=== PATIENT | male | born 1955 | race African-American/Black ===

== ENCOUNTER 2017-06-02 16:51 | Emergency (ER) | payer OTHER ==
[~2017-06-02] VITALS: Ht 193 cm; Wt 99.8 kg
[2017-06-02] MEDS: MORPHINE SULFATE 5 MG/ML SYRINGE. IV ONE (17:21)
[2017-06-02 17:23] LABS: BASO % 0 % (0-3); EOS % 0 % (0-3); HEMOGLOBIN 15.4 g/dL (13.0-17.5); LYMPH # 3.3 x10^3/uL (1.0-4.8); LYMPH % 35 % (24-48); MEAN CORPUSCULAR HEMOGLOBIN 31 pg (25-35); MEAN CORPUSCULAR HGB CONC 34 g/dL (31-37); MEAN CORPUSCULAR VOLUME 92 fL (79-100); MONO # 0.7 x10^3/uL (0.0-1.1); MONO % 7 % (0-9); NEUT # 5.5 x10^3uL (1.8-7.7); NEUT % 57 % (31-73); PLATELET COUNT 207 x10^3/uL (140-400); RED BLOOD COUNT 4.99 x10^6/uL (4.30-5.70); RED CELL DISTRIBUTION WIDTH 13.9 % (11.5-14.5); WHITE BLOOD COUNT 9.5 x10^3/uL (4.0-11.0)
[2017-06-02 17:24] LABS: POTASSIUM ISTAT 3.6 mmol/L (3.5-5.0)
[2017-06-02] MEDS ORDERED: IV NORMAL SALINE 1,000ML 1,000 ML ONE (17:38)
[2017-06-02] MEDS: IOHEXOL 300 MG/ML 75 ML VIAL. IV ONE (17:42)
--- NOTE | 2017-06-02 17:52 | ED.ADGEN ---
Past History Past Medical History: No Pertinent History Past Surgical History: No Surgical History Alcohol Use: Occasionally Drug Use: None Adult General Chief Complaint Chief Complaint Fall, back pain, sob HPI HPI Patient is a 62 year old male who presents with pain after mechanical fall from tree just prior to arrival. Fall approximately 10-12 feet onto his back. Pt with SOB and back pain, denies LOC, unsure if hit head. Denies blood thinners. Pt was cutting branches with chain saw when he fell. Pt denies extremity pain , reports he injured his left long fingertip earlier in the week with the chainsaw. Pt unsure of his last tetanus shot. Denies alcohol or drugs. Pt came in by POV with friend, promptly placed in cervical collar. Review of Systems Review of Systems Constitutional: Denies fever or chills [] Eyes: Denies change in visual acuity, redness, or eye pain [] HENT: Denies nasal congestion or sore throat [] Respiratory: Denies cough Cardiovascular: denies chest pain GI: Denies abdominal pain, nausea, vomiting, bloody stools or diarrhea [] : Denies dysuria or hematuria [] Musculoskeletal: reports back pain Integument: Denies rash , left long finger tip injury Neurologic: Denies headache, focal weakness or sensory changes [] Current Medications Current Medications Current Medications Medications (Trade) Dose Ordered Sig/Julián Start Time Stop Time Status Last Admin Dose Admin Diphtheria/ Tetanus/Acell Pertussis (Boostrix) 0.5 ml ONCE ONCE 06/02/17 17:15 06/02/17 17:16 DC 06/02/17 17:58 0.5 ML Iohexol (Omnipaque 300 Mg/ml) 75 ml 1X ONCE 06/02/17 17:15 06/02/17 17:16 DC 06/02/17 17:42 75 ML Morphine Sulfate (Morphine 5mg Syringe) 5 mg 1X ONCE 06/02/17 17:00 06/02/17 17:16 DC 06/02/17 17:21 5 MG Sodium Chloride 1,000 ml @ As Directed STK-MED ONCE 06/02/17 17:38 06/02/17 17:39 DC Allergies Allergies Allergies Coded Allergies Type Severity Reaction Last Updated Verified No Known Drug Allergies 06/02/17 No Physical Exam Physical Exam Constitutional: Well developed, well nourished, mild acute distress 2/2 to pain and shallow breathing HENT: Normocephalic, atraumatic, bilateral external ears normal, oropharynx moist, no oral exudates, nose normal. [] Eyes: PERRLA, EOMI, conjunctiva normal, no discharge. [] Neck: Normal range of motion, no tenderness, supple, no stridor. [] Cardiovascular:Heart rate regular rhythm, no murmur [] Lungs & Thorax: Bilateral breath sounds clear to auscultation [] Abdomen: Bowel sounds normal, soft, no tenderness, no masses, no pulsatile masses. [] Skin: Warm, dry, no erythema, no rash. [] Back: No tenderness, no CVA tenderness. [] Extremities: No tenderness, no cyanosis, no clubbing, ROM intact, no edema. [] Neurologic: Alert and oriented X 3, normal motor function, normal sensory function, no focal deficits noted. [] Psychologic: Affect normal, judgement normal, mood normal. [] Current Patient Data Vital Signs Vital Signs Date Time Temp Pulse Resp B/P (MAP) Pulse Ox O2 Delivery O2 Flow Rate FiO2 06/02/17 17:21 20 98 Room Air 2.0 06/02/17 17:08 98.5 78 Lab Results Laboratory Tests Test 06/02/17 17:01 06/02/17 17:20 White Blood Count 9.5 x10^3/uL (4.0-11.0) Red Blood Count 4.99 x10^6/uL (4.30-5.70) Hemoglobin 15.4 g/dL (13.0-17.5) Hematocrit 46.0 % (39.0-53.0) Mean Corpuscular Volume 92 fL (79-100) Mean Corpuscular Hemoglobin 31 pg (25-35) Mean Corpuscular Hemoglobin Concent 34 g/dL (31-37) Red Cell Distribution Width 13.9 % (11.5-14.5) Platelet Count 207 x10^3/uL (140-400) Neutrophils (%) (Auto) 57 % (31-73) Lymphocytes (%) (Auto) 35 % (24-48) Monocytes (%) (Auto) 7 % (0-9) Eosinophils (%) (Auto) 0 % (0-3) Basophils (%) (Auto) 0 % (0-3) Neutrophils # (Auto) 5.5 x10^3uL (1.8-7.7) Lymphocytes # (Auto) 3.3 x10^3/uL (1.0-4.8) Monocytes # (Auto) 0.7 x10^3/uL (0.0-1.1) Eosinophils # (Auto) 0.0 x10^3/uL (0.0-0.7) Basophils # (Auto) 0.0 x10^3/uL (0.0-0.2) POC Hemoglobin 16.0 gm/dL POC Hematocrit 47 % POC Sodium 141 mmol/L (135-145) POC Potassium 3.6 mmol/L (3.5-5.0) POC Chloride 106 mmol/L (98-110) POC Total CO2 26 mmol/L (23-32) Anion Gap 13 mmol/L (6-14) POC Blood Urea Nitrogen 23 mg/dL (8-26) POC Creatinine 1.3 mg/dL (0.5-1.4) Glucose Level 128 mg/dL (60-99) H POC Ionized Calcium (Mor) 1.15 mmol/L (1.13-1.32) EKG EKG [] Radiology/Procedures Radiology/Procedures Stat portable chest XRAy reviewed by me shows no acute pneumothorax or hemothorax, normal cardiac silhouette, no acute bony abnormality CT head/neck/T & L spine/chest, abd and pelvis CT results pending at time care was transferred. Course & Med Decision Making Course & Med Decision Making Pertinent Labs and Imaging studies reviewed. (See chart for details) Pt placed in cervical collar upon arrival. Pt maintained in spinal precautions. No focal back pain but pt reports pain in back with any active or passive ROM of the lower extremities. Stat portab chest ordered and pt did not have any signs of pneumo/hemothorax. CTs ordered. IV established, labs ordered, Pt given IV morphine and tdap. At 1800, CT scans pending. Care was transferred to Dr. Johnson pending results. Pt's pain improved. Final Impression Final Impression Fall from tree[] Problems: Dragon Disclaimer Dragon Disclaimer This electronic medical record was generated, in whole or in part, using a voice recognition dictation system. DAVID JONES MD Jun 02, 2017 17:52
[2017-06-02] MEDS: DIPHTH,PERTUSS(ACELL),TET TOX 0.5 ML DISP.SYRIN. VAX IM ONE (17:58)
--- NOTE | 2017-06-02 18:32 | RAD ---
PQRS Compliance Statement: One or more of the following individualized dose reduction techniques were utilized for this examination: 1. Automated exposure control 2. Adjustment of the mA and/or kV according to patient size 3. Use of iterative reconstruction technique CT HEAD AND CERVICAL SPINE WITHOUT CONTRAST History: fell out of a tree, neck and back pain Comparison: None. Procedure: Axial images are obtained of the head from the skull base through the vertex without IV contrast. Noncontrast helical CT of the cervical spine was performed. Axial, sagittal, and coronal reconstructions were obtained. Findings: The ventricles and sulci are normal for the patient's age. No mass-effect, midline shift, hemorrhage or obvious acute infarction is identified. Basilar cisterns are patent. There is a small hypodensity in the left elaina that could be old lacunar infarct. Finding is only seen on one image and therefore could be artifact. Bone windows demonstrate no significant calvarial abnormality. The visualized paranasal sinuses are clear. Mastoid air cells are well aerated. There is no evidence of acute fracture or acute malalignment of the cervical spine. There is disc space narrowing and endplate spurring and probably reactive sclerosis of C5/C6. The facet joints are intact, mildly hypertrophic. The left C2/C3 facet joint is partially fused. Other disc spaces are relatively maintained. Mild degenerative endplate spurring. 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 Visualized soft tissues of the neck demonstrate no significant abnormalities. The visualized lung apices are clear. IMPRESSION: 1. No acute intracranial abnormality. 2. No acute fracture of the cervical spine. Electronically signed by: Oseas Vasquez MD (06/02/2017 6:29 PM) [facility]
--- NOTE | 2017-06-02 18:48 | RAD ---
PQRS Compliance Statement: One or more of the following individualized dose reduction techniques were utilized for this examination: 1. Automated exposure control 2. Adjustment of the mA and/or kV according to patient size 3. Use of iterative reconstruction technique CT LUMBAR SPINE WO CONTRAST, CT THORACIC SPINE WO CONTRAST, CT CHEST ABD PELVIS W/CONTRAST Clinical Indication: Fell out of a tree, back pain Comparison: None. TECHNIQUE: Helical CT imaging of the chest abdomen and pelvis is performed after 75 cc Omnipaque 300 IV contrast. Using source images, small [id number] multiplanar reformats of the lumbar and thoracic spine constructed. Findings: There is no acute traumatic aortic injury. There is no mediastinal hematoma. Great vessels normal caliber. Cardiac size normal, no pericardial effusion. Central airways are patent. No pneumothorax. There is mild atelectasis or scarring in the periphery of the right lower lobe and in the lateral right middle lobe. There is moderate groundglass opacity in the periphery of the left lower lobe. No overlying rib fracture is seen. Tiny bubble of air is seen along the pleural surface, image 68. Considerations include atelectasis or pulmonary contusion if there was blunt trauma. There is no acute traumatic solid organ injury in the upper abdomen. There is a 1.5 cm right adrenal nodule, not definitive but probably an adenoma. There is no acute injury of bowel. No intraperitoneal free air or fluid. Abdominal aorta is intact. The urinary bladder is normal. Bilateral inguinal lymph nodes may be reactive. No acute pelvic fracture. There is acute traumatic minimally displaced fracture of the left L2 transverse process. No acute compression fracture in the lumbar spine. The alignment is maintained. Probably reactive sclerosis along the inferior endplate of L3 on the left. There is endplate spurring. There is acute compression fracture at the inferior endplate of the T7 vertebral body. There is minimal loss of height. Fracture line can be seen on sagittal image 41 and coronal image 12. There are acute compression fractures at the inferior endplates of the T9 and T10 vertebral bodies. IMPRESSION: 1. Acute traumatic compression fractures of the inferior endplates of the T7, T9, and T10 vertebral bodies. There is negligible loss of height. 2. There is groundglass opacity in the periphery of the left lower lobe. Considerations include atelectasis or pulmonary contusion. 3. No acute rib fracture. 4. Acute traumatic fracture of the left L2 transverse process. 5. No acute traumatic soft tissue injury in the abdomen or pelvis. Electronically signed by: Oseas Vasquez MD (06/02/2017 6:45 PM) [facility]
[2017-06-02 20:18] VITALS: BP 158/96
[2017-06-02] MEDS: IV RINGERS SOLUTION,LACTATED 1,000 ML IV ONE (21:00)
[2017-06-02] MEDS: MORPHINE SULFATE 10 MG/ML SYRINGE. SQ ONE (22:18)
--- NOTE | 2017-06-03 07:12 | RAD ---
Single view chest 06/02/2017 Clinical indication: Fall. Comparison: Same day CT chest, abdomen and pelvis. Findings: Cardiac and mediastinal silhouettes are unremarkable. No pleural effusion, pneumothorax or focal consolidation. Impression: No acute cardiopulmonary abnormality.
== END 2017-06-02 22:25 | disposition short-term general hospital (02) ==
LOC: ER 16:51
DX: S22.068A Other fracture of T7-T8 thoracic vertebra, initial encounter for closed fracture (principal); S22.078A Other fracture of T9-T10 vertebra, initial encounter for closed fracture; S32.028A Other fracture of second lumbar vertebra, initial encounter for closed fracture; S69.92XA Unspecified injury of left wrist, hand and finger(s), initial encounter; E27.9 Disorder of adrenal gland, unspecified; W14.XXXA Fall from tree, initial encounter; Y93.89 Activity, other specified; Y99.8 Other external cause status; Y92.89 Other specified places as the place of occurrence of the external cause
CPT/HCPCS: 36415; 70450; 71045; 71260; 72125; 72128; 72131; 74177; 80047; 85025; 90471; 90715; 96361; 96372; 96374; 99285; J2270; J7120; Q9967